=== PATIENT | female | born 1995 | race Two or more races ===

== ENCOUNTER 2018-05-04 22:23 | Emergency (ER) | payer SELFPAY ==
[~2018-05-04] VITALS: Ht 157.5 cm; Wt 51.0 kg
[2018-05-04] MEDS ORDERED: SODIUM CHLORIDE 0.9% 1,000 ML IV ONE (23:33)
[2018-05-05 01:03] LABS: BASOPHILS % 0.5 % (0.0-2.0); EOSINOPHILS % 0.4 % (0.0-5.0); HEMATOCRIT. 43.7 % (36.0-48.0); HEMOGLOBIN. 14.7 g/dL (12.0-16.0); LYMPHOCYTES % 12.2 % (20.0-50.0); MEAN CORPUSCULAR HEMOGLOBIN 29.5 pg (28.0-32.0); MEAN CORPUSCULAR VOLUME 87.4 fL (81.0-99.0); MEAN PLATELET VOLUME 9.1 fl (7.4-10.4); MONOCYTES % 4.9 % (2.0-8.0); PLATELET 251 x1000/uL (130-400); RED BLOOD CELL COUNT 4.99 mill/uL (4.2-5.4); RED CELL DISTRIBUTION WIDTH 15.1 % (11.6-14.6)
[2018-05-05 01:11] LABS: CHLORIDE 108 mEq/L (98-107)
[2018-05-05 01:13] LABS: HCG SCREEN NEGATIVE
[2018-05-05 01:15] LABS: ETHANOL BLOOD < 10 mg/dL
[2018-05-05 01:28] LABS: *AMPHETAMINES SCREEN URINE NEGATIVE (NEGATIVE); *BARBITURATES SCREEN URINE NEGATIVE (NEGATIVE); *BENZODIAZEPINES SCREEN URINE NEGATIVE (NEGATIVE); *COCAINE SCREEN URINE NEGATIVE (NEGATIVE)
[2018-05-05 01:29] LABS: CANNABINOID URINE SCREEN NEGATIVE (NEGATIVE); METHADONE URINE SCREEN NEGATIVE (NEGATIVE); OPIATES URINE SCREEN NEGATIVE (NEGATIVE); PHENCYCLIDINE URINE SCREEN NEGATIVE (NEGATIVE)
[2018-05-05 02:05] VITALS: BP 111/63
== END 2018-05-05 02:09 | disposition home or self-care (01) ==
LOC: ER 22:23
DX: E86.0 Dehydration (principal); Z91.81 History of falling; Z86.03 Personal history of neoplasm of uncertain behavior; Z98.890 Other specified postprocedural states
CPT/HCPCS: 36415; 80053; 80305; 81025; 84484; 84703; 85025; 93005; 96360; 96361; 99285; G0482; J7030